=== PATIENT | male | born 1980 | race Two or more races ===

== ENCOUNTER 2022-05-11 22:50 | Emergency (ER) | payer MEDICAID, OTHER ==
[~2022-05-11] VITALS: Ht 175.3 cm; Wt 70.5 kg
[2022-05-12] MEDS ORDERED: ONDANSETRON HCL 4 MG/2 ML VIAL IV ONE (01:15)
[2022-05-12] MEDS ORDERED: HYDROmorphone HCL 2 MG/ML VL/or syr IV ONE (01:15)
[2022-05-12 01:55] LABS: Basophils # (auto) 0 10 ^3/uL (0-0.2); Basophils % (auto) 0.1 % (0.0-2.0); Eosinophils # (auto) 0 10 ^3/uL (0-0.8); Hematocrit 47.6 % (41.0-53.0); Hemoglobin 16.2 g/dL (13.5-17.5); Lymphocytes # (auto) 1.1 10 ^3/uL (0.4-5.4); Lymphocytes % (auto) 5.9 % (10.0-50.0); Mean Corpuscular Hgb Conc. 34.1 g/dL (32.0-36.0); Monocytes % (auto) 5.5 % (0.0-12.0); Neutrophils # (auto) 16.4 10 ^3/uL (1.6-8.6); Neutrophils % (auto) 88.5 % (37.0-80.0); Nucleated Red Blood Cells % 0.1 %; Red Blood Cells 5.06 10^6/uL (4.5-5.90); Red Cell Distribution Width 13.2 % (11.8-14.3); White Blood Cell 18.6 10^3/uL (4.4-10.8)
[2022-05-12 02:10] LABS: INR 0.97 (0.9-1.15); Partial Thromboplastin Time 23.2 sec (24.6-33.4)
[2022-05-12 02:13] LABS: Albumin 3.8 g/dL (3.4-5.0); Potassium 3.6 mmol/L (3.5-5.1)
[2022-05-12 02:15] LABS: BUN/Creatinine Ratio 13.6
[2022-05-12 02:42] LABS: Bilirubin, Total 0.3 mg/dL (0.2-1.0); Total Protein 7.9 g/dL (6.4-8.2)
[2022-05-12 03:00] VITALS: BP 128/84
== END 2022-05-12 03:06 | disposition short-term general hospital (02) ==
LOC: EDBD 22:50 → ER 22:50
DX: S09.93XA Unspecified injury of face, initial encounter (principal); R04.0 Epistaxis; V86.65XA Passenger of 3- or 4- wheeled all-terrain vehicle (ATV) injured in nontraffic accident, initial encounter; Y93.89 Activity, other specified; Y92.89 Other specified places as the place of occurrence of the external cause; Y99.8 Other external cause status
CPT/HCPCS: 36415; 70450; 70486; 71045; 71250; 72125; 74176; 80053; 80320; 85025; 85610; 85730; 96374; 96375; 99285; J1170; J2405